=== PATIENT | male | born 1940 | race Caucasian/White ===

== ENCOUNTER → 2021-08-02 11:13 | Outpatient (CLI) | payer MEDICARE, OTHER, SELFPAY ==
--- NOTE | ~2021-08-02 | CT_ITS ---
EXAMINATION: CT chest abdomen pelvis w con EXAM DATE: 08/02/2021 12:06 INDICATION: Shortness of breath. Malignant neoplasm of colon, unspecified, Secondary malignancy. [place] n, liver cancer. TECHNIQUE: Spiral CT of the chest, abdomen and pelvis was performed following intravenous injection o f 100 mL Omnipaque 350. Axial, coronal and sagittal images chest, abdomen and pelvis were reviewed. Coronal maximum intensity pixel images of chest reviewed. The dose-length product (DLP) for this ex amination was 997.51 mGy-cm. The exposure was tailored according to patient size (auto mA exposure c ontrol), and iterative reconstruction (ASIR) was used as additional dose reduction technique. There is no prior study for comparison. FINDINGS: CHEST: There is a right-sided Chemo-Port in position. There is mild emphysema. There are small bila teral pleural effusions with adjacent multifocal subsegmental atelectasis. No central pulmonary embol i. Tracheobronchial tree is patent. There are right 4 epicardial nodules of necrotic appearing soft tissue measuring up to about 1.3 cm, metastatic lymphadenopathy. There is no mediastinal, hilar or ax illary lymphadenopathy. There is no pneumothorax. Heart normal in size. There is mild coronary arterial calcification, arterial sclerosis. ABDOMEN PELVIS: Numerous liver masses, some with calcification, metastatic disease and treatment resp onse. Overall size of liver is small and caudate lobe is hypertrophied, suggesting cirrhosis. There a re bilateral adrenal masses probably metastatic disease larger on the left at 3.6 cm. Some splenic gr anulomas. There is large amount of ascites. There are gallstones within an otherwise unremarkable gallbladder. No evidence of obstructive biliary disease. Portal and splenic veins are patent. Kidneys enhance s ymmetrically. There is no hydronephrosis. There is 3 x 5 mm left inferior calyceal stone. Prostate measures 4 cm transverse dimension. There is small left inguinal fat-containing hernia. Some small miller praumbilical abdominal wall fat-containing hernias. The bladder is unremarkable. There is portacaval and upper retroperitoneal lymphadenopathy, with one aortocaval lymph node measuri ng 1.8 x 1.5 cm. There is moderate scattered arteriosclerotic disease. There are no findings to suggest appendicitis. The stomach and small bowel are unremarkable. There is expected amount of colonic stool. Status post partial colectomy. No free intraperitoneal gas. Th ere are no osteoblastic or osteolytic lesions identified. IMPRESSION: 1. Numerous liver masses consistent with metastatic disease and treatment response. 2. Metastatic right epicardial, portacaval, upper retroperitoneal lymphadenopathy. 3. 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 4. Cirrhosis, large amount of ascites. 5. Small pleural effusions, basilar multifocal atelectasis. 6. Left nephrolithiasis. Surgical, chronic findings. Reviewed, dictated and finalized at location B. IMPRESSION: 1. Numerous liver masses consistent with metastatic disease and treatment resp onse. 2. Metastatic right epicardial, portacaval, upper retroperitoneal lymphadenopa thy. 3. 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 4. Cirrhosis, large amount of ascites. 5. Small pleural effusions, basilar multifocal atelectasis. 6. Left nephrolithiasis. Surgical, chronic findings.
[2021-08-02 11:45] LABS: Estimated Glomerular Filt Rate 49
== END ==
PROVIDERS: Visit Provider Internal Medicine Medical Oncology
DX: C18.9 Malignant neoplasm of colon, unspecified (principal); C78.7 Secondary malignant neoplasm of liver and intrahepatic bile duct; J90 Pleural effusion, not elsewhere classified; N20.0 Calculus of kidney; K74.69 Other cirrhosis of liver
CPT/HCPCS: 71260; 74177; Q9967